=== PATIENT | female | born 2000 | race Caucasian/White ===

== ENCOUNTER 2022-01-18 04:34 | Observation (INO) ==
[2022-01-18] MEDS ORDERED: Ondansetron 4 mg VIAL 2 MG/ML 2 ml VIAL IV ONE ×2 (04:45→09:48)
[2022-01-18] MEDS ORDERED: Lactated Ringers 1000 ml BAG 1,000 ML IV ONE (04:45)
[2022-01-18] MEDS ORDERED: Morphine 4 MG/ML VIAL (1 ml) IV ONE (04:45)
[2022-01-18 05:12] LABS: ABS Lymphocytes 2.2 10^3/ul (1.0-4.8); ABS Neutrophils 11.3 10^3/ul (1.5-7.7); Eosinophil % 0.2 %; Hematocrit 38 % (35-47); Hemoglobin 13.1 g/dL (12.0-16.0); Lymphocyte % 15.1 %; Mean Corpuscular HGB Conc 35 g/dL (31-36); Mean Corpuscular Hemoglobin 29 pg (27-31); Mean Corpuscular Volume 83 fL (80-97); Mean Platelet Volume 7.9 fL (7.4-10.4); Platelet Count 227 10^3/uL (150-450); Red Blood Count 4.54 10^6 /uL (3.70-4.87); Red Cell Distribution Width 14 % (10-15); White Blood Count 14.5 10^3/uL (3.5-10.8)
[2022-01-18 05:25] LABS: INR 1.09 (0.86-1.15)
[2022-01-18 05:45] LABS: ALT 16 U/L (7-52); AST 18 U/L (13-39); Albumin 4.3 g/dL (3.2-5.2); Albumin/Globulin Ratio 1.7 (1-3); Alkaline Phosphatase 48 U/L (35-149); Anion Gap 10 mmol/L (2-11); Blood Urea Nitrogen 11 mg/dL (6-24); CO2 Carbon Dioxide 22 mmol/L (22-32); Calcium 9.6 mg/dL (8.6-10.3); Chloride 106 mmol/L (101-111); Globulin 2.5 g/dL (2-4); Glucose 106 mg/dL (70-100); Lipase 11 U/L (11.0-82.0); Magnesium 1.7 mg/dL (1.9-2.7); Potassium 3.6 mmol/L (3.5-5.0); Sodium 138 mmol/L (135-145); Total Protein 6.8 g/dL (6.4-8.9); eGFR CKD-EPI 117.5 (>60)
[2022-01-18 05:51] LABS: HCG Pregnancy < 0.60 mIU/mL
[2022-01-18] MEDS ORDERED: Iohexol 300 (CONTRAST) 10 ML SDV IV ONE (06:33)
[2022-01-18 06:50] LABS: Urine Appearance Cloudy; Urine Bilirubin Negative (Negative); Urine Blood 3+ (Negative); Urine Color Yellow; Urine Glucose Negative (Negative); Urine Ketones Trace (Negative); Urine Nitrite Negative (Negative); Urine Protein 1+(30 mg/dL) (Negative); Urine Specific Gravity 1.027 (1.002-1.030); Urine Urobilinogen Negative (Negative)
[2022-01-18 06:57] LABS: Urine Bacteria 1+ (Absent); Urine Red Blood Cell 3+(>10/hpf) (Absent); Urine Squamous Epithelial Cell Present (Absent); Urine White Blood Cell 2+(11-20/hpf) (Absent)
[2022-01-18] MEDS ORDERED: NS 0.9% 1000 ml BAG 1,000 ML IV ONE (08:37)
[2022-01-18] MEDS ORDERED: Morphine 10 MG/ML VIAL (1 ml) IV ONE (09:48)
[2022-01-18] MEDS ORDERED: Ondansetron 4 mg VIAL 2 MG/ML 2 ml VIAL IV PRN (10:13)
[2022-01-18] MEDS ORDERED: HYDROmorphone 1 MG/1 ML SYRINGE IV SLOW PU PRN (10:13)
[2022-01-18] MEDS ORDERED: Piperacillin/Tazobactam VIAL 3.375 GM in NS 0.9% 100 ml BAG 100 ML IVPB SCH (11:00)
[2022-01-18] MEDS ORDERED: fentaNYL 100 mcg/2 ml 50 MCG/ML VIAL IV PRN (11:26)
[2022-01-18] MEDS ORDERED: DiMENhydriNATE IV 50 mg/ml 1 ml VIAL IV PUSH PRN (11:26)
[2022-01-18] MEDS ORDERED: Naloxone 0.4 mg VIAL 0.4 mg/ml 1 ml VIAL IV PRN (11:26)
[2022-01-18] MEDS ORDERED: Buffered Lidocaine 1% SYRIN 1 ml INTRADERM ONE (11:28)
[2022-01-18] MEDS ORDERED: ZOSYN 3.375 GM x ONE DOSE over 30 miuntes IV ×2 (11:30→20:00)
[2022-01-18] MEDS ORDERED: Succinylcholine 200 mg VIAL 20 mg/ml 10 ml VIAL (200 mg) ONE (11:39)
[2022-01-18] MEDS ORDERED: Lidocaine 2% PF 5 ML VIAL ONE (11:39)
[2022-01-18] MEDS ORDERED: Midazolam 2 mg/2 ml VIAL 1 mg/ml 2 ml VIAL (2 mg) ONE (11:39)
[2022-01-18] MEDS ORDERED: fentaNYL 100 mcg/2 ml 50 MCG/ML VIAL ONE (11:39)
[2022-01-18] MEDS ORDERED: Rocuronium 50 mg VIAL 10 mg/ml 5 ml VIAL (50 mg) ONE (11:39)
[2022-01-18] MEDS ORDERED: Propofol 10 MG/ML 20 ML BTL ONE (11:39)
[2022-01-18] MEDS ORDERED: Lactated Ringers 1000 ml BAG 1,000 ML IV SCH (12:00)
[2022-01-18] MEDS ORDERED: Dexamethasone IV 4 MG/ML VIAL 1 ml VIAL ONE (14:33)
[2022-01-18] MEDS ORDERED: Acetaminophen IV 1 GM/100ML 100 ML IV ONE (14:50)
[2022-01-18] MEDS ORDERED: Ondansetron 4 mg VIAL 2 MG/ML 2 ml VIAL ONE (14:51)
[2022-01-18] MEDS: NS 0.9% 1000 ml BAG 1,000 ML IV SCH (20:22)
[2022-01-19] MEDS: Piperacillin/Tazobactam VIAL 3.375 GM in NS 0.9% 100 ml BAG 100 ML IVPB SCH ×2 (00:38→08:21)
[2022-01-19] MEDS: oxyCODONE/Acetamin 5/325 mg TAB PO PRN ×2 (01:34→08:21)
[2022-01-19] MEDS: NS 0.9% 1000 ml BAG 1,000 ML IV SCH (05:16)
[2022-01-19 11:31] VITALS: BP 100/63
[2022-01-19 14:36] LABS: Chlamydia trachomatis NAA Negative (Negative); Neisseria gonorrhoeae (GC) NAA Negative (Negative)
[2022-01-19 14:46] LABS: Trichomonas vag NAA Female Negative (Negative)
== END 2022-01-19 13:45 | disposition home or self-care (01) ==
LOC: EDHOLD 04:34 → ED 04:34 → AA 12:58 → INTOOBSV 13:10 → AA 13:10 → SSU 19:27
PROVIDERS: ADMIT Surgery; ATTEND Surgery